=== PATIENT | male | born 1950 | race Caucasian/White ===

== ENCOUNTER → 2019-02-21 | Outpatient (CLI) | payer OTHER | LOC: CAT 12:04 | DX: Z13.6 Encounter for screening for cardiovascular disorders (principal); E78.00 Pure hypercholesterolemia, unspecified; I25.10 Atherosclerotic heart disease of native coronary artery without angina pectoris ==

== ENCOUNTER → 2019-04-02 | Outpatient (CLI) | payer OTHER ==
[~2019-04-02] VITALS: Ht 167.6 cm; Wt 105.7 kg
[~2019-04-02] MED LIST: ALLOPURINOL 10100 M3 PO; COZAAR 25 MG TA25 M1 PO; CRESTOR20 MG PO
[2019-04-02 11:15] VITALS: BP 148/67
--- NOTE | 2019-04-02 16:11 | CATHLAB ---
[facility] [address] [place] [address] INVASIVE PROCEDURE REPORT Name: GIOVANNI COHEN V Room #: REG [facility] [id number] Admission: 04/02/19 Attend Phys: Nathan Morales Discharge: Date of : 48 Report #: [id number] THIS REPORT FOR: //name// APPROVED REPORT Study performed: 04/02/2019 13:04:52 Patient Details Patient Status: Out-Patient Room #: The patient is a 68 year-old male Event Personnel Nathan Espinal Manufacturing Specialist, Anders Patel RN, Nery Ray Monitor, Marcia Marquez RTR Scrub Procedures Performed Art Access - R femoral artery* Left Heart Cath w/or w/o Coronaries [id number] [facility] Hemostasis with Manual pressure 71773 Initial Mod Sed Same Phys/QHP Gr5y 190465 46727 Mod Sed Same Phys/QHP Ea 006887, supervision of conscious sedation Indication Chest pain, Elevated coronary calcium score of greater than 400 Procedure Narrative The Right Groin^ was infiltrated with 1% Lidocaine subcutaneous anesthesia. A PINNACLE 4FR Sheath #[id number] sheath was inserted into the RFA 4F^. Coronary angiography was performed using coronary diagnostic catheters. The right coronary system was accessed and visualized with a JR4 catheter. The left coronary system was accessed and visualized with a JL4 catheter. Hemostasis was obtained with manual pressure following sheath removal without any complications. There was no hematoma. Intraoperative Conscious Sedation Sedation start time: 1400 Case end Time: 1440 Versed 2 mg Fluoro Time: 5.30 minutes Dose: DAP 9098.00 cGycm2 1630 mGy Contrast Type and Amount: Omnipaque 50 ml Coronary Angiography [facility] [address] [place] [address] INVASIVE PROCEDURE REPORT Name: GIOVANNI COHEN V Room #: REG [facility]#: [id number] Admission: 04/02/19 Attend Phys: Nathan Morales Discharge: Date of : 48 Report #: [id number] The patient's coronary anatomy is right dominant. Diagnostic Cath Left Main Normal origin moderate caliber bifurcates left anterior descending left circumflex free of high-grade disease LAD Moderate caliber type II vessel which courses in the anterior interventricular sulcus further significant epicardial calcifications noted that the origin of the first diagonal branch appears to be an eccentric narrowing of approximately 50%. This is heavily calcified but does not appear to be flow-limiting. The LAD then continues in the anterior interventricular sulcus with luminal irregularities terminates small-caliber bifurcating vessel at the apex Diagonal 1 Small-caliber vessel with a mild less than 50% proximal lesion Circumflex Large-caliber vessel coursing gives rise to a large caliber first marginal branches circumflex proper continues in the AV groove posteriorly terminates as a small posterior wall branch. This first marginal branch is moderate to large caliber and trifurcates in its course along the lateral aspect of the left ventricle. There is mild luminal irregularities but no high-grade lesions noted OM1 Artery large caliber vessel trifurcating along the lateral aspect of the heart free of high-grade disease but only luminal irregularities present Right Coronary Normal origin moderate caliber proceeds in the AV groove giving rise to small right atrial and right ventricular branches. A day which is approximately regular supposed of descending artery and terminates as a small caliber posterior wall branch. No high-grade lesions are noted but mild luminal irregularities R PDA Moderate caliber vessel normal origin coursing the posterior interventricular sulcus without high-grade lesions. The distal third is a rapidly tapering vessel towards the apex but no significant obstructive lesions are noted Left Ventriculography Left Ventriculography was not performed. Hemodynamics The aortic pressure is 140/69 mmHg with a mean of 93 mmHg. The left ventricular pressure is 149/-2 mmHg with a mean of mmHg. The left ventricular end diastolic pressure is 16 mmHg. Conclusion 1. Coronary disease mild nonobstructive with a 50% proximal mid LAD 2. Normal hemodynamics [facility] [address] [place] [address] INVASIVE PROCEDURE REPORT Name: GIOVANNI COHEN V Room #: REG CL Angela#: [id number] Admission: 04/02/19 Attend Phys: Nathan Morales Discharge: Date of : 48 Report #: [id number] 3. Extensive epicardial coronary artery calcifications noted on fluoroscopy Recommendations Cardiac Risk Reduction Program Medical Therapy <ELECTRONICALLY SIGNED> By: Nathan Espinal MD 04/02/191610 10 10 Nathan Espinal MD /INF
--- NOTE | 2019-04-02 17:15 | EKG ---
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
== END | disposition home or self-care (01) ==
LOC: CATH 10:30
DX: R07.9 Chest pain, unspecified (principal); I25.10 Atherosclerotic heart disease of native coronary artery without angina pectoris; I10 Essential (primary) hypertension; E78.5 Hyperlipidemia, unspecified; E66.09 Other obesity due to excess calories; F17.210 Nicotine dependence, cigarettes, uncomplicated; Z79.899 Other long term (current) drug therapy; Z98.890 Other specified postprocedural states

== ENCOUNTER → 2019-07-20 | Outpatient (CLI) | payer OTHER | LOC: SJCVC 14:07 | DX: R94.31 Abnormal electrocardiogram [ECG] [EKG] (principal); I10 Essential (primary) hypertension; I25.10 Atherosclerotic heart disease of native coronary artery without angina pectoris; Z79.899 Other long term (current) drug therapy ==

== ENCOUNTER → 2019-08-10 | Outpatient (CLI) | payer OTHER | LOC: SJCVC 10:38 | DX: I10 Essential (primary) hypertension (principal); I25.10 Atherosclerotic heart disease of native coronary artery without angina pectoris; E78.5 Hyperlipidemia, unspecified; Z79.899 Other long term (current) drug therapy ==

== ENCOUNTER → 2020-02-08 | Outpatient (CLI) | payer OTHER | LOC: SJCVC 09:55 | PROVIDERS: ATTEND Internal Medicine | DX: R94.31 Abnormal electrocardiogram [ECG] [EKG] (principal); I25.10 Atherosclerotic heart disease of native coronary artery without angina pectoris; I10 Essential (primary) hypertension; E78.5 Hyperlipidemia, unspecified; R00.2 Palpitations ==

== ENCOUNTER → 2020-08-28 | Outpatient (CLI) | payer OTHER | LOC: SJCVCIMAG 09:40 | PROVIDERS: ATTEND Internal Medicine | DX: I10 Essential (primary) hypertension (principal); N28.1 Cyst of kidney, acquired; I25.10 Atherosclerotic heart disease of native coronary artery without angina pectoris; Z79.82 Long term (current) use of aspirin; Z79.899 Other long term (current) drug therapy ==

== ENCOUNTER → 2021-02-17 | Outpatient (CLI) | payer OTHER | LOC: SJCVC 11:26 | PROVIDERS: ATTEND Internal Medicine | DX: I25.10 Atherosclerotic heart disease of native coronary artery without angina pectoris (principal); I10 Essential (primary) hypertension; E78.5 Hyperlipidemia, unspecified; G47.33 Obstructive sleep apnea (adult) (pediatric); M48.00 Spinal stenosis, site unspecified; Z88.8 Allergy status to other drugs, medicaments and biological substances; Z79.82 Long term (current) use of aspirin; Z79.899 Other long term (current) drug therapy; Z87.891 Personal history of nicotine dependence; Z72.89 Other problems related to lifestyle ==